=== PATIENT | male | born 1975 | race Caucasian/White ===

== ENCOUNTER 2018-02-05 19:23 | Emergency (ER) | payer OTHER ==
[~2018-02-05] VITALS: Ht 165.1 cm; Wt 93.9 kg
[2018-02-05] MEDS ORDERED: PANADOL EXTRA500 MG (19:54)
== END 2018-02-06 00:57 | disposition home or self-care (01) ==
LOC: ER 19:23
DX: M54.5 Low back pain (principal)

== ENCOUNTER 2021-06-06 12:52 | Emergency (ER) | payer OTHER ==
[~2021-06-06] VITALS: Ht 162.6 cm; Wt 87.5 kg
[~2021-06-06 12:52] MED LIST: PANADOL EXTRA500 MG
[2021-06-06] MEDS ORDERED: COZAAR100 MG PO (13:10)
[2021-06-06] MEDS ORDERED: AMOX-CLAV 875-1 EACH PO (14:06)
[2021-06-06] MEDS ORDERED: HIBICLENS118 ML TOP (14:06)
[2021-06-06] MEDS ORDERED: KETO10TA2 PO (14:06)
== END 2021-06-06 15:05 | disposition home or self-care (01) ==
LOC: ER 12:52
DX: L03.317 Cellulitis of buttock (principal)